=== PATIENT | female | born 1950 | race Caucasian/White ===

== ENCOUNTER 2016-07-05 13:55 | Emergency (ER) | payer BC ==
[2016-07-05 14:29] VITALS: BP 155/74
--- NOTE | 2016-07-05 14:55 | UC ---
Cardiac HPI - HPI Summary HPI Summary: The patient comes in today for: 1. Right posterior chest pain: Onset: 2 days ago. Palliative/provocative: Nothing makes it better. No position makes it better. Shifting position may help for an "instant.' Quality: Burning, Region: Posterior right back/chest, with radiation outward and to the front of her ribs. Severity: 10 Time: Constant. Associated symptoms: Dyspnea: None. Nausea: "Yeah, I do feel a little bit nauseous." Home Rx: ibuprofen (400 mg/dose, x 4 doses yesterday), stretches--all no help. Fevers: None. * - History of Current Complaint Chief Complaint: UCBackPain Stated Complaint: BACK PAIN Time Seen by Provider: 07/05/16 14:46 Hx Obtained From: Patient - Allergy/Home Medications Allergies/Adverse Reactions: Allergies Allergy/AdvReac Type Severity Reaction Status Date / Time Codeine Allergy Severe Nausea Verified 07/05/16 14:23 Hydrocodone Allergy Severe Nausea Verified 07/05/16 14:23 Home Medications: Home Medications Zolpidem TAB* [Ambien*] 07/05/16 [History] PMH/Surg Hx/FS Hx/Imm Hx Previously Healthy: No - Insomnia. Endocrine History Of: Denies: Diabetes, Thyroid Disease, Hyperthyroidism, Hypothyroidism, Dyslipidemia Cardiovascular History Of: Denies: Cardiac Disorders, Hypertension, Pacemaker/ICD, Myocardial Infarction , Congestive Heart Failure, Atrial Fibrillation, Deep Vein Thrombosis, Bleeding Disorders Respiratory History Of: Denies: COPD, Asthma, Bronchitis, Pneumonia, Pulmonary Embolism GI/ History Of: Denies: Gastroesophageal Reflux, Ulcer, Gastrointestinal Bleed, Gall Bladder Disease, Kidney Stones, Diverticulitis, Renal Disease, Urosepsis Neurological History Of: Denies: TIA, CVA, Dementia, Seizures, Migraine Psychological History Of: Denies: Anxiety, Depression, Bipolar Disorder, Schizophrenia, Post Traumatic Stress Disorder Cancer History Of: Denies: Lung Cancer, Colorectal Cancer, Breast Cancer, Prostate Cancer, Cervical Cancer Other History Of: Negative For: HIV, Hepatitis B, Hepatitis C, Anticoagulant Therapy - Surgical History Surgical History: Yes Surgery Procedure, Year, and Place: hysterectomy-1987 - Family History Known Family History: Positive: Cardiac Disease Negative: Hypertension - Social History Occupation: Employed Full-time Alcohol Use: None Substance Use Type: None Smoking Status (MU): Never Smoked Tobacco Review of Systems Constitutional: Negative Skin: Negative Eyes: Negative ENT: Negative Respiratory: Negative Cardiovascular: Chest Pain Gastrointestinal: Negative Genitourinary: Negative All Other Systems Reviewed And Are Negative: Yes Physical Exam Triage Information Reviewed: Yes Appearance: Well-Appearing, No Pain Distress, Well-Nourished Vital Signs: Initial Vital Signs Temp 98.9 F 07/05/16 14:24 Pulse 67 07/05/16 14:24 Resp 16 07/05/16 14:24 BP 155/74 07/05/16 14:24 Pulse Ox 100 07/05/16 14:24 Vital Signs Reviewed: Yes Eyes: Positive: Conjunctiva Clear. Negative: Discharge ENT: Positive: Hearing grossly normal. Negative: Pharyngeal erythema, Nasal congestion, Nasal drainage, TM bulging, TM dull, TM red, Tonsillar swelling, Tonsillar exudate Dental: Negative: Gross Decay/Caries @, Dental Fracture @ Neck: Positive: Supple, Nontender, No Lymphadenopathy. Negative: Nuchal Rigidity Respiratory: Positive: Lungs clear, No respiratory distress, No accessory muscle use. Negative: Crackles, Wheezing Cardiovascular: Positive: RRR, No Murmur Abdomen Description: Positive: No Organomegaly, Soft. Negative: Nontender - She has mild tenderness of the lower right quadrant, with no rebound or percussion tenderness. There were no massese., Distended, Guarding, Peritoneal Signs Musculoskeletal: Positive: Strength Intact, ROM Intact, Other: - No pain to palpation of the area of pain that the patient comes in for. Neurological: Positive: Alert, Muscle Tone Normal Psychological: Positive: Age Appropriate Behavior, Consolable Skin: Negative: rashes, breakdown Diagnostics - Laboratory Diagnostic Studies Completed/Ordered: EKG: Rate: 67. Rhythm: Sinus. Ectopy: None. Acute changes: None. - Radiology No standard instances Xray Interpretation: No Acute Changes Radiology Interpretation Completed By: Radiologist - There was an increased amount of stool in the colon. - Assessment/Plan Course Of Treatment: Patient was told that I was not able to determine the cause of her right posterior back pain. She was told that the EKG and the CXR did not show a cause for this and the abdominal x-ray did not show the cause of her lower right quadrant abdominal pain. The patient was told that I don't know for sure what is causing her chest and abdominal. pain. The patient was also told that there are many causes for chest and abdominal pain--. some which are benign and some which are life-threatening. Furthermore, it was. mentioned that the life-threatening causes of chest and abdominal pain can present with. minimal, atypical, or even no symptoms. Becasue of these facts and the fact. that we don't have here all the testing methods commonly used to assess abdominal and chest. pain, and their timely resuts, my recommendation is for the patient to go to. the [facility] [place] [place]. However, she states that she will be going home and contacting her primary care provider. to be seen this coming week. - Clinical Impression Provider Diagnoses: Chest pain, etiology undetermined. ABdominal pain, etiology undetermined. Discharge - Discharge Plan Condition: Stable Disposition: AGAINST MEDICAL ADVICE Patient Education Materials: Chest Pain (ED) Referrals: Nuha Hill MD [Primary Care Provider] - As Soon As Possible (If you are not going to the ER, please be seen by your primary care provider as soon as you can. If you get worse, please reconsider going to the ER.)
--- NOTE | 2016-07-05 16:03 | RAD ---
INDICATION: Right lower chest and abdominal pain COMPARISON: None TECHNIQUE: PA and lateral views of the chest and 4 views of the abdomen were obtained. FINDINGS: The heart and mediastinum are normal in size and contour. There is mild calcification noted at the aortic arch. The lungs are grossly clear. There is no evidence of large pleural effusion. Visualized bones are normal for the patient's age. There is a large amount of stool noted throughout the length of the colon. There is no pathologic bowel dilatation. There is no evidence of free air in the abdomen. IMPRESSION: 1. No radiographic evidence of acute cardiopulmonary disease. 2. Large amount of stool throughout the length of the colon could be seen in the setting of constipation.
== END 2016-07-05 17:47 | disposition left against medical advice (07) ==
LOC: UCEAST 13:55
DX: R07.89 Other chest pain (principal); R10.813 Right lower quadrant abdominal tenderness; Z88.6 Allergy status to analgesic agent
CPT/HCPCS: 71020; 74020; 93005; 99202; G0463